=== PATIENT | female | born 1970 | race Hispanic/Latino ===

== ENCOUNTER → 2020-12-31 | Outpatient (CLI) | payer BC ==
[~2020-12-31] MED LIST: COLACE100 MG PO
== END ==
LOC: MAMMO 13:16
PROVIDERS: ATTEND Internal Medicine
DX: Z12.31 Encounter for screening mammogram for malignant neoplasm of breast (principal); R06.2 Wheezing
CPT/HCPCS: 71046; 77067

== ENCOUNTER 2021-01-01 18:49 | Emergency (ER) | payer BC ==
[~2021-01-01] VITALS: Ht 152.4 cm; Wt 59.0 kg
[2021-01-01] MEDS ORDERED: ASPIRIN 81 MG CHEW TAB PO ONE (19:30)
[2021-01-01 20:21] LABS: BASOPHILS # (AUTO) 0.1 (0.0-0.1); BASOPHILS % 0.7 % (0.0-1.0); EOSINOPHILS # (AUTO) 0.1 (0.0-0.4); EOSINOPHILS % 1.3 % (0.0-6.0); HEMATOCRIT 38.9 % (34.2-44.1); HEMOGLOBIN 12.2 g/dL (12.0-16.0); LYMPHOCYTES # (AUTO) 2.6 (1.0-3.2); LYMPHOCYTES % 34.3 % (18.0-39.1); MEAN CORPUSCULAR HEMOGLOBIN 27.1 pg (28-32); MEAN CORPUSCULAR HGB CONC 31.4 g/dL (31-35); MEAN CORPUSCULAR VOLUME 86.4 fL (81-99); MONOCYTES # (AUTO) 0.7 (0.2-0.8); MONOCYTES % 9.3 % (4.4-11.3); NEUTROPHILS # (AUTO) 4.1 (2.1-6.9); PLATELET COUNT 257 x10e3/uL (140-360); RED CELL DISTRIBUTION WIDTH 13.3 % (11.7-14.4)
[2021-01-01 20:24] LABS: CLARITY,URINE CLEAR (CLEAR); COLOR,URINE YELLOW (YELLOW)
[2021-01-01 20:25] LABS: KETONES,URINE NEGATIVE (NEGATIVE); LEUKOCYTE ESTERASE ,URINE NEGATIVE (NEGATIVE); NITRITE,URINE NEGATIVE (NEGATIVE); PROTEIN,URINE DIPSTICK NEGATIVE (NEGATIVE); URINE UROBILINOGEN 0.2 mg/dL (0.2 - 1)
[2021-01-01 20:35] LABS: BACTERIA,URINE RARE /HPF
[2021-01-01 20:39] LABS: ALANINE AMINOTRANSFERASE 14 IU/L (0-55); ALBUMIN 3.9 g/dL (3.5-5.0); ALBUMIN/GLOBULIN RATIO 1.1 (0.8-2.0); ALKALINE PHOSPHATASE 103 IU/L (40-150); ANION GAP 16.1 mmol/L (8-16); BLOOD UREA NITROGEN 22 mg/dL (7-26); BUN/CREATININE RATIO 33 (6-25); CALCIUM 9.3 mg/dL (8.4-10.2); CARBON DIOXIDE 24 mmol/L (22-29); CHLORIDE 106 mmol/L (98-107); CREATINE KINASE 87 IU/L (29-168); CREATININE, SERUM 0.66 mg/dL (0.57-1.11); EST GLOMERULAR FILTRATION RATE > 60 ML/MIN (60-); GLUCOSE 238 mg/dL (74-118); POTASSIUM 4.1 mmol/L (3.5-5.1); SODIUM 142 mmol/L (136-145)
[2021-01-01] MEDS ORDERED: SODIUM CHLORIDE 0.9% 50ML 50 ML ONE (20:54)
[2021-01-01] MEDS ORDERED: IOPAMIDOL 370 MG/ML 200 ML INFUS..BTL INJ ONE (20:54)
[2021-01-01] MEDS ORDERED: COLACE100 MG PO (21:39)
[2021-01-01 21:55] VITALS: BP 140/68
== END 2021-01-01 22:10 | disposition home or self-care (01) ==
LOC: ER 20:36
DX: R10.12 Left upper quadrant pain (principal); K59.00 Constipation, unspecified
CPT/HCPCS: 36415; 71045; 74177; 80053; 81001; 82550; 82553; 83690; 83880; 84484; 85025; 93005; 99284; Q9967

== ENCOUNTER 2021-04-28 08:56 | Emergency (ER) | payer BC ==
[~2021-04-28] VITALS: Ht 152.4 cm; Wt 59.0 kg
[2021-04-28 10:29] LABS: BASOPHILS # (AUTO) 0.1 (0.0-0.1); EOSINOPHILS # (AUTO) 0.1 (0.0-0.4); EOSINOPHILS % 1.6 % (0.0-6.0); HEMATOCRIT 43.3 % (34.2-44.1); LYMPHOCYTES # (AUTO) 2.7 (1.0-3.2); LYMPHOCYTES % 30.9 % (18.0-39.1); MEAN CORPUSCULAR HEMOGLOBIN 28.1 pg (28-32); MEAN CORPUSCULAR HGB CONC 32.3 g/dL (31-35); MEAN CORPUSCULAR VOLUME 86.8 fL (81-99); MONOCYTES # (AUTO) 0.6 (0.2-0.8); MONOCYTES % 6.9 % (4.4-11.3); NEUTROPHILS # (AUTO) 5.1 (2.1-6.9); NEUTROPHILS % 58.9 % (38.7-80.0); PLATELET COUNT 222 x10e3/uL (140-360); RED BLOOD COUNT 4.99 x10e6/uL (3.6-5.1); RED CELL DISTRIBUTION WIDTH 14.3 % (11.7-14.4)
[2021-04-28 10:36] LABS: CLARITY,URINE CLEAR (CLEAR); COLOR,URINE YELLOW (YELLOW); LEUKOCYTE ESTERASE ,URINE NEGATIVE (NEGATIVE); NITRITE,URINE NEGATIVE (NEGATIVE); PROTEIN,URINE DIPSTICK NEGATIVE (NEGATIVE)
[2021-04-28 10:37] LABS: KETONES,URINE NEGATIVE (NEGATIVE); URINE UROBILINOGEN 0.2 mg/dL (0.2 - 1)
[2021-04-28 10:40] LABS: ALANINE AMINOTRANSFERASE 24 IU/L (0-55); ALBUMIN 4.6 g/dL (3.5-5.0); ALBUMIN/GLOBULIN RATIO 1.2 (0.8-2.0); ALKALINE PHOSPHATASE 113 IU/L (40-150); ANION GAP 16.1 mmol/L (8-16); BLOOD UREA NITROGEN 8 mg/dL (7-26); BUN/CREATININE RATIO 11 (6-25); CALCIUM 9.6 mg/dL (8.4-10.2); CARBON DIOXIDE 24 mmol/L (22-29); CHLORIDE 105 mmol/L (98-107); CREATINE KINASE 77 IU/L (29-168); CREATININE, SERUM 0.71 mg/dL (0.57-1.11); EST GLOMERULAR FILTRATION RATE 87 ML/MIN (60-); GLUCOSE 203 mg/dL (74-118); POTASSIUM 4.1 mmol/L (3.5-5.1); SODIUM 141 mmol/L (136-145)
[2021-04-28 11:02] LABS: THYROID STIMULATING HORMONE 0.123 uIU/mL (0.350-4.940)
== END 2021-04-28 15:27 | disposition home or self-care (01) ==
LOC: ER 09:47
DX: R53.1 Weakness (principal); E11.65 Type 2 diabetes mellitus with hyperglycemia; R07.89 Other chest pain; R06.02 Shortness of breath; I69.354 Hemiplegia and hemiparesis following cerebral infarction affecting left non-dominant side; I69.351 Hemiplegia and hemiparesis following cerebral infarction affecting right dominant side
CPT/HCPCS: 36415; 70450; 71045; 80053; 81001; 82550; 82553; 83735; 84443; 84484; 85025; 85651; 93005; 99284; U0002

== ENCOUNTER 2022-03-01 09:11 | Emergency (ER) | payer BC, OTHER ==
[~2022-03-01] VITALS: Ht 152.4 cm; Wt 59.0 kg
[2022-03-01] MEDS ORDERED: SODIUM CHLORIDE FLUSH 10 ML SYR INJ PRN (09:30)
[2022-03-01 09:36] LABS: BASOPHILS # (AUTO) 0.1 (0.0-0.1); BASOPHILS % 0.8 % (0.0-1.0); EOSINOPHILS # (AUTO) 0.1 (0.0-0.4); EOSINOPHILS % 1.3 % (0.0-6.0); HEMATOCRIT 35.6 % (34.2-44.1); HEMOGLOBIN 11.6 g/dL (12.0-16.0); LYMPHOCYTES # (AUTO) 3.8 (1.0-3.2); LYMPHOCYTES % 38.7 % (18.0-39.1); MEAN CORPUSCULAR HEMOGLOBIN 29.1 pg (28-32); MEAN CORPUSCULAR HGB CONC 32.6 g/dL (31-35); MEAN CORPUSCULAR VOLUME 89.4 fL (81-99); MONOCYTES # (AUTO) 0.8 (0.2-0.8); MONOCYTES % 7.6 % (4.4-11.3); NEUTROPHILS % 50.5 % (38.7-80.0); PLATELET COUNT 257 x10e3/uL (140-360); RED BLOOD COUNT 3.98 x10e6/uL (3.6-5.1); RED CELL DISTRIBUTION WIDTH 13.2 % (11.7-14.4)
[2022-03-01] MEDS ORDERED: LACTATED RINGER'S 1,000 ML INJ STA (09:41)
[2022-03-01] MEDS ORDERED: ACETAMINOPHEN 325 MG TAB PO ONE (09:45)
[2022-03-01 09:50] LABS: INR 0.83; PROTHROMBIN TIME 12.2 seconds (11.9-14.5)
[2022-03-01 09:58] LABS: MAGNESIUM 1.4 MG/DL (1.3-2.1); PHOSPHORUS 3.5 MG/DL (2.3-4.7)
[2022-03-01 10:24] LABS: CLARITY,URINE CLEAR (CLEAR); COLOR,URINE YELLOW (YELLOW); KETONES,URINE NEGATIVE (NEGATIVE); LEUKOCYTE ESTERASE ,URINE NEGATIVE (NEGATIVE); NITRITE,URINE NEGATIVE (NEGATIVE); PROTEIN,URINE DIPSTICK NEGATIVE (NEGATIVE); URINE UROBILINOGEN 0.2 mg/dL (0.2 - 1)
[2022-03-01 10:39] LABS: BACTERIA,URINE FEW /HPF; EPITHELIAL CELLS,URINE FEW /LPF; RBC,URINE 0-5 /HPF (0-5); WBC,URINE (MAN) 0-5 /HPF (0-5)
[2022-03-01 12:35] LABS: ALBUMIN 3.7 g/dL (3.5-5.0); ALBUMIN/GLOBULIN RATIO 1.2 (0.8-2.0); CALCIUM 9.5 mg/dL (8.4-10.2); CREATININE, SERUM 0.8 mg/dL (0.57-1.11)
[2022-03-01] MEDS ORDERED: INSULIN REGULAR, HUMAN 100 UNIT/1 ML SQ ONE (12:45)
== END 2022-03-01 13:43 | disposition home or self-care (01) ==
LOC: ER 09:30
DX: R53.1 Weakness (principal); E11.65 Type 2 diabetes mellitus with hyperglycemia; E86.0 Dehydration; I10 Essential (primary) hypertension; E78.5 Hyperlipidemia, unspecified; Z86.73 Personal history of transient ischemic attack (TIA), and cerebral infarction without residual deficits
CPT/HCPCS: 36415; 70450; 70551; 80053; 81001; 82947; 83735; 84100; 85025; 85610; 93005; 94760; 99284; J7121; U0002

== ENCOUNTER 2022-04-03 21:09 | Emergency (ER) | payer OTHER ==
[~2022-04-03] VITALS: Ht 152.4 cm; Wt 56.7 kg
[2022-04-03 21:47] LABS: BASOPHILS # (AUTO) 0.1 (0.0-0.1); BASOPHILS % 0.8 % (0.0-1.0); EOSINOPHILS % 0.5 % (0.0-6.0); HEMATOCRIT 35.8 % (34.2-44.1); HEMOGLOBIN 11.6 g/dL (12.0-16.0); LYMPHOCYTES # (AUTO) 1.6 (1.0-3.2); LYMPHOCYTES % 25.4 % (18.0-39.1); MEAN CORPUSCULAR HEMOGLOBIN 29.4 pg (28-32); MEAN CORPUSCULAR HGB CONC 32.4 g/dL (31-35); MEAN CORPUSCULAR VOLUME 90.9 fL (81-99); MONOCYTES # (AUTO) 0.8 (0.2-0.8); MONOCYTES % 12.2 % (4.4-11.3); NEUTROPHILS # (AUTO) 3.9 (2.1-6.9); NEUTROPHILS % 60.3 % (38.7-80.0); PLATELET COUNT 212 x10e3/uL (140-360); RED BLOOD COUNT 3.94 x10e6/uL (3.6-5.1); RED CELL DISTRIBUTION WIDTH 13.3 % (11.7-14.4)
[2022-04-03 21:52] LABS: ALANINE AMINOTRANSFERASE 33 IU/L (0-55); ALBUMIN 3.7 g/dL (3.5-5.0); ALBUMIN/GLOBULIN RATIO 1.2 (0.8-2.0); ALKALINE PHOSPHATASE 62 IU/L (40-150); ANION GAP 15.5 mmol/L (8-16); BLOOD UREA NITROGEN 7 mg/dL (7-26); BUN/CREATININE RATIO 11 (6-25); CALCIUM 8.8 mg/dL (8.4-10.2); CARBON DIOXIDE 25 mmol/L (22-29); CHLORIDE 104 mmol/L (98-107); CREATINE KINASE 164 IU/L (29-168); CREATININE, SERUM 0.62 mg/dL (0.57-1.11); GLUCOSE 155 mg/dL (74-118); POTASSIUM 3.5 mmol/L (3.5-5.1); SODIUM 141 mmol/L (136-145)
[2022-04-03] MEDS ORDERED: BEBTELOVIMAB 175 MG INJ IV ONE (22:15)
[2022-04-04 00:27] VITALS: BP 110/56
== END 2022-04-04 00:28 | disposition home or self-care (01) ==
LOC: ER 21:13
DX: U07.1 COVID-19 (principal); R50.9 Fever, unspecified; R05.9 Cough, unspecified; E11.65 Type 2 diabetes mellitus with hyperglycemia; I10 Essential (primary) hypertension; E78.5 Hyperlipidemia, unspecified; R94.31 Abnormal electrocardiogram [ECG] [EKG]; Z86.73 Personal history of transient ischemic attack (TIA), and cerebral infarction without residual deficits
CPT/HCPCS: 36415; 71045; 80053; 82550; 82553; 83880; 84484; 85025; 93005; 99284; U0002

== ENCOUNTER 2023-02-19 18:03 | Inpatient (IN) | payer OTHER ==
[~2023-02-19] VITALS: Ht 152.4 cm; Wt 57.3 kg
[2023-02-19] MEDS ORDERED: CEFTRIAXONE 1 GM VIAL IM ONE (18:30)
[2023-02-19] MEDS ORDERED: VANCOMYCIN HCL 1.25 GM in SODIUM CHLORIDE 0.9% 250ML 250 ML IV ONE ×2 (18:30→19:15)
[2023-02-19 18:44] LABS: BASOPHILS # (AUTO) 0.1 (0.0-0.1); BASOPHILS % 0.9 % (0.0-1.0); EOSINOPHILS # (AUTO) 0.2 (0.0-0.4); EOSINOPHILS % 1.8 % (0.0-6.0); HEMATOCRIT 39.7 % (34.2-44.1); HEMOGLOBIN 12.9 g/dL (12.0-16.0); LYMPHOCYTES # (AUTO) 3.7 (1.0-3.2); LYMPHOCYTES % 40.3 % (18.0-39.1); MEAN CORPUSCULAR HEMOGLOBIN 28.8 pg (28-32); MEAN CORPUSCULAR HGB CONC 32.5 g/dL (31-35); MEAN CORPUSCULAR VOLUME 88.6 fL (81-99); MONOCYTES # (AUTO) 0.6 (0.2-0.8); MONOCYTES % 6.6 % (4.4-11.3); NEUTROPHILS # (AUTO) 4.6 (2.1-6.9); PLATELET COUNT 348 x10e3/uL (140-360); RED BLOOD COUNT 4.48 x10e6/uL (3.6-5.1); RED CELL DISTRIBUTION WIDTH 13.5 % (11.7-14.4)
[2023-02-19 18:57] LABS: ALBUMIN 4.6 g/dL (3.5-5.0); ALBUMIN/GLOBULIN RATIO 1.3 (0.8-2.0); ANION GAP 17.8 mmol/L (8-16); CREATININE, SERUM 0.98 mg/dL (0.57-1.11); POTASSIUM 3.8 mmol/L (3.5-5.1)
[2023-02-19] MEDS ORDERED: Vancomycin IV 1 GM in SODIUM CHLORIDE 0.9% 250ML 250 ML IV ONE (19:15)
[2023-02-19] MEDS ORDERED: TRAMADOL HCL 50 MG TAB PO ONE (19:30)
[2023-02-19] MEDS ORDERED: GABAPENTIN 300 MG CAP PO ONE (19:30)
[2023-02-19] MEDS ORDERED: Morphine 2mg Syringe 2 MG/ML SYR IV PRN (19:45)
[2023-02-19] MEDS ORDERED: SODIUM CHLORIDE FLUSH 10 ML SYR INJ PRN (19:45)
[2023-02-19] MEDS ORDERED: ONDANSETRON HCL INJ 2MG/ML 2ML 2 MG/ML VIAL IV PRN (19:45)
[2023-02-19 20:57] VITALS: BP 135/76
[2023-02-19 21:30] VITALS: BP 135/76
[2023-02-19 23:42] LABS: CREATINE KINASE 68 IU/L (29-168)
[2023-02-20] VITALS (7 sets, daily range): BP systolic 113–141; BP diastolic 59–78
[2023-02-20] MEDS ORDERED: PROTONIX20 MG PO (00:19)
[2023-02-20] MEDS ORDERED: MONTELUKAST SOD10 MG PO (00:19)
[2023-02-20] MEDS ORDERED: ASPIRIN81 MG PO (00:19)
[2023-02-20] MEDS ORDERED: CLOPIDOGREL75 MG PO (00:19)
[2023-02-20] MEDS ORDERED: METHIMAZOLE10 MG PO (00:19)
[2023-02-20] MEDS ORDERED: METFORMIN HCL500 MG PO (00:19)
[2023-02-20] MEDS ORDERED: FAMOTIDINE20 MG PO (00:19)
[2023-02-20] MEDS ORDERED: ATORVASTATIN CA20 MG PO (00:19)
[2023-02-20] MEDS ORDERED: GLIPIZIDE5 MG PO (00:19)
[2023-02-20] MEDS ORDERED: GUAIFENESIN/DEXTROMETHORPHAN LIQD 5 ML UDC PO PRN (01:45)
[2023-02-20] MEDS ORDERED: DEXTROSE 50% SYRINGE 50 ML IV PRN (01:45)
[2023-02-20] MEDS ORDERED: ONDANSETRON HCL INJ 2MG/ML 2ML 2 MG/ML VIAL IV PRN (01:45)
[2023-02-20] MEDS ORDERED: MAGNESIUM/ALUMINUM/SIMETHICONE 30 ML UDC PO PRN (01:45)
[2023-02-20] MEDS ORDERED: MELATONIN 3 MG TAB PO PRN (01:45)
[2023-02-20] MEDS ORDERED: ACETAMINOPHEN 325 MG TAB PO PRN (01:45)
[2023-02-20] MEDS ORDERED: DOCUSATE SODIUM 100 MG CAP PO PRN (01:45)
[2023-02-20] MEDS ORDERED: HYDRALAZINE HCL 20 MG/ML VIAL IV PRN (01:45)
[2023-02-20 06:24] LABS: BASOPHILS # (AUTO) 0.1 (0.0-0.1); BASOPHILS % 1.4 % (0.0-1.0); EOSINOPHILS # (AUTO) 0.2 (0.0-0.4); EOSINOPHILS % 3.6 % (0.0-6.0); HEMATOCRIT 34.2 % (34.2-44.1); HEMOGLOBIN 10.7 g/dL (12.0-16.0); LYMPHOCYTES # (AUTO) 3.1 (1.0-3.2); MEAN CORPUSCULAR HEMOGLOBIN 28.8 pg (28-32); MEAN CORPUSCULAR HGB CONC 31.3 g/dL (31-35); MEAN CORPUSCULAR VOLUME 91.9 fL (81-99); MONOCYTES # (AUTO) 0.6 (0.2-0.8); MONOCYTES % 8.7 % (4.4-11.3); NEUTROPHILS # (AUTO) 2.3 (2.1-6.9); NEUTROPHILS % 36.7 % (38.7-80.0); PLATELET COUNT 268 x10e3/uL (140-360); RED BLOOD COUNT 3.72 x10e6/uL (3.6-5.1); RED CELL DISTRIBUTION WIDTH 13.6 % (11.7-14.4)
[2023-02-20 06:43] LABS: ALBUMIN 3.7 g/dL (3.5-5.0); ALBUMIN/GLOBULIN RATIO 1.3 (0.8-2.0); ANION GAP 13.4 mmol/L (8-16); CALCIUM 8.8 mg/dL (8.4-10.2); CREATININE, SERUM 0.77 mg/dL (0.57-1.11); POTASSIUM 4.4 mmol/L (3.5-5.1)
[2023-02-20] MEDS: INSULIN REGULAR, HUMAN 100 UNIT/1 ML SQ SCH ×4 (07:30→21:19)
[2023-02-20] MEDS: MONTELUKAST SODIUM 10 MG TAB PO SCH (09:17)
[2023-02-20] MEDS: MULTIVITAMINS/MINERALS TAB PO SCH (09:17)
[2023-02-20] MEDS: FAMOTIDINE 20 MG TAB PO SCH (09:18)
[2023-02-20] MEDS: CLOPIDOGREL BISULFATE 75 MG TAB PO SCH (09:18)
[2023-02-20] MEDS: ASPIRIN 81 MG CHEW TAB PO SCH (09:18)
[2023-02-20] MEDS: PANTOPRAZOLE SOD 40 MG TABEC PO SCH (09:18)
[2023-02-20] MEDS: ACETAMINOPHEN/CODEINE 300MG - 30MG TAB PO PRN ×3 (09:24→21:47)
[2023-02-20] MEDS ORDERED: SODIUM CHLORIDE 0.9% 250ML 250 ML ONE (09:27)
[2023-02-20] MEDS ORDERED: IOPAMIDOL 370 MG/ML 100 ML INFUS..BTL INJ ONE (16:01)
[2023-02-20] MEDS: ATORVASTATIN 20 MG TAB PO SCH (21:08)
[2023-02-21] VITALS: BP 132/72
[2023-02-21 04:00] VITALS: BP 118/61
[2023-02-21 06:52] LABS: CHOL/HDL RATIO 4.6 (3.0-3.6)
[2023-02-21 08:00] VITALS: BP 118/61
[2023-02-21] MEDS: MONTELUKAST SODIUM 10 MG TAB PO SCH (08:17)
[2023-02-21] MEDS: MULTIVITAMINS/MINERALS TAB PO SCH (08:17)
[2023-02-21] MEDS: FAMOTIDINE 20 MG TAB PO SCH (08:18)
[2023-02-21] MEDS: PANTOPRAZOLE SOD 40 MG TABEC PO SCH (08:18)
[2023-02-21] MEDS: CLOPIDOGREL BISULFATE 75 MG TAB PO SCH (08:18)
[2023-02-21] MEDS: ASPIRIN 81 MG CHEW TAB PO SCH (08:18)
[2023-02-21] MEDS: ACETAMINOPHEN/CODEINE 300MG - 30MG TAB PO PRN ×2 (08:19→20:27)
[2023-02-21] MEDS: INSULIN REGULAR, HUMAN 100 UNIT/1 ML SQ SCH ×4 (08:21→20:20)
[2023-02-21 08:22] VITALS: BP 111/62
[2023-02-21 12:21] VITALS: BP 108/83
[2023-02-21] MEDS: Morphine 2mg Syringe 2 MG/ML SYR IV PRN ×2 (13:11→18:40)
[2023-02-21] MEDS ORDERED: ONDANSETRON HCL 4 MG ORAL DISINTEGRATING TAB PO PRN (14:15)
[2023-02-21 15:46] VITALS: BP 112/75
[2023-02-21] MEDS: ATORVASTATIN 20 MG TAB PO SCH (20:20)
[2023-02-22 05:00] VITALS: BP 112/75
[2023-02-22 05:01] VITALS: BP 112/75
[2023-02-22 08:03] VITALS: BP 118/61
[2023-02-22 08:27] VITALS: BP 116/78
[2023-02-22] MEDS: INSULIN REGULAR, HUMAN 100 UNIT/1 ML SQ SCH ×4 (08:56→20:53)
[2023-02-22] MEDS: Morphine 2mg Syringe 2 MG/ML SYR IV PRN ×2 (08:59→15:19)
[2023-02-22] MEDS: PANTOPRAZOLE SOD 40 MG TABEC PO SCH (09:00)
[2023-02-22] MEDS: MULTIVITAMINS/MINERALS TAB PO SCH (09:00)
[2023-02-22] MEDS: MONTELUKAST SODIUM 10 MG TAB PO SCH (09:00)
[2023-02-22] MEDS: ASPIRIN 81 MG CHEW TAB PO SCH (09:00)
[2023-02-22] MEDS: CLOPIDOGREL BISULFATE 75 MG TAB PO SCH (09:00)
[2023-02-22] MEDS: FAMOTIDINE 20 MG TAB PO SCH (09:00)
[2023-02-22 11:55] VITALS: BP 131/75
[2023-02-22] MEDS: ALBUTEROL SULF 0.083% NEB SOLN 3 ML NEB NEB SCH ×2 (15:00→23:00)
[2023-02-22 16:01] VITALS: BP 127/103
[2023-02-22] MEDS: ACETAMINOPHEN/CODEINE 300MG - 30MG TAB PO PRN (20:42)
[2023-02-22] MEDS: ATORVASTATIN 20 MG TAB PO SCH (20:42)
[2023-02-22] MEDS: INSULIN GLARGINE 100 UNITS/ML VIAL SQ SCH (20:55)
[2023-02-23] VITALS (20 sets, daily range): BP systolic 113–152; BP diastolic 58–84
[2023-02-23] MEDS: ALBUTEROL SULF 0.083% NEB SOLN 3 ML NEB NEB SCH (07:00)
[2023-02-23 07:23] LABS: BASOPHILS # (AUTO) 0.1 (0.0-0.1); BASOPHILS % 0.8 % (0.0-1.0); EOSINOPHILS # (AUTO) 0.2 (0.0-0.4); EOSINOPHILS % 3.1 % (0.0-6.0); HEMATOCRIT 34.9 % (34.2-44.1); HEMOGLOBIN 11.2 g/dL (12.0-16.0); LYMPHOCYTES # (AUTO) 2.5 (1.0-3.2); LYMPHOCYTES % 40.5 % (18.0-39.1); MEAN CORPUSCULAR HEMOGLOBIN 28.6 pg (28-32); MEAN CORPUSCULAR HGB CONC 32.1 g/dL (31-35); MEAN CORPUSCULAR VOLUME 89.3 fL (81-99); MONOCYTES # (AUTO) 0.7 (0.2-0.8); MONOCYTES % 10.8 % (4.4-11.3); NEUTROPHILS # (AUTO) 2.7 (2.1-6.9); NEUTROPHILS % 44.2 % (38.7-80.0); PLATELET COUNT 246 x10e3/uL (140-360); RED BLOOD COUNT 3.91 x10e6/uL (3.6-5.1); RED CELL DISTRIBUTION WIDTH 13.6 % (11.7-14.4)
[2023-02-23 07:41] LABS: ANION GAP 12.4 mmol/L (8-16); CALCIUM 9.2 mg/dL (8.4-10.2); CREATININE, SERUM 0.76 mg/dL (0.57-1.11); POTASSIUM 4.4 mmol/L (3.5-5.1)
[2023-02-23] MEDS: CLOPIDOGREL BISULFATE 75 MG TAB PO SCH (08:08)
[2023-02-23] MEDS: MONTELUKAST SODIUM 10 MG TAB PO SCH (08:09)
[2023-02-23] MEDS: FAMOTIDINE 20 MG TAB PO SCH (08:09)
[2023-02-23] MEDS: PANTOPRAZOLE SOD 40 MG TABEC PO SCH (08:09)
[2023-02-23] MEDS: MULTIVITAMINS/MINERALS TAB PO SCH (08:09)
[2023-02-23] MEDS: ASPIRIN 81 MG CHEW TAB PO SCH (09:00)
[2023-02-23] MEDS: INSULIN REGULAR, HUMAN 100 UNIT/1 ML SQ SCH ×4 (09:45→21:37)
[2023-02-23] MEDS ORDERED: NITROGLYCERIN/D5W 200 MCG/ML 250 ML ONE (10:06)
[2023-02-23] MEDS ORDERED: HEPARIN SOD/SOD CHLORIDE 2,000 ML ONE (10:06)
[2023-02-23] MEDS ORDERED: LIDOCAINE HCL 2% LOCAL 20 ML VIAL ONE (10:06)
[2023-02-23] MEDS ORDERED: IOPAMIDOL 370 MG/ML 100 ML INFUS..BTL INJ ONE (10:06)
[2023-02-23] MEDS ORDERED: SODIUM CHLORIDE 0.9% 1000ML 1,000 ML ONE ×2 (10:06→10:42)
[2023-02-23] MEDS ORDERED: FENTANYL CITRATE/PF 100MCG/2 ML INJ ONE (10:16)
[2023-02-23] MEDS ORDERED: MIDAZOLAM HCL 2 MG/2 ML VIAL ONE (10:16)
[2023-02-23] MEDS ORDERED: VERAPAMIL HCL 2.5 MG/ML 2 ML VIAL ONE (10:43)
[2023-02-23] MEDS ORDERED: CLOPIDOGREL BISULFATE 75 MG TAB ONE (11:40)
[2023-02-23] MEDS: INSULIN GLARGINE 100 UNITS/ML VIAL SQ SCH (21:38)
[2023-02-23] MEDS: ATORVASTATIN 20 MG TAB PO SCH (21:39)
[2023-02-23] MEDS: ACETAMINOPHEN/CODEINE 300MG - 30MG TAB PO PRN (21:54)
[2023-02-24 00:50] VITALS: BP 140/55
[2023-02-24 05:01] VITALS: BP 115/54
[2023-02-24] MEDS: INSULIN REGULAR, HUMAN 100 UNIT/1 ML SQ SCH (07:30)
[2023-02-24 08:27] VITALS: BP 123/72
[2023-02-24] MEDS: ASPIRIN 81 MG CHEW TAB PO SCH (08:38)
[2023-02-24] MEDS: FAMOTIDINE 20 MG TAB PO SCH (08:38)
[2023-02-24] MEDS: PANTOPRAZOLE SOD 40 MG TABEC PO SCH (08:38)
[2023-02-24] MEDS: MONTELUKAST SODIUM 10 MG TAB PO SCH (08:38)
[2023-02-24] MEDS: MULTIVITAMINS/MINERALS TAB PO SCH (08:38)
[2023-02-24] MEDS: CLOPIDOGREL BISULFATE 75 MG TAB PO SCH (08:39)
[2023-02-24 08:50] VITALS: BP 123/72
[2023-02-24 12:47] VITALS: BP 140/60
[2023-02-24] MEDS ORDERED: ASPIRIN81 MG PO (12:55)
[2023-02-24] MEDS ORDERED: LEVOFLOXACIN500 MG PO (12:55)
[2023-02-24] MEDS ORDERED: CLOPIDOGREL75 MG PO (12:55)
== END 2023-02-24 15:53 | disposition home or self-care (01) | DRG 271 ==
LOC: ER 18:07 → ERHOLD 19:47 → MED/SURG2 20:41 → OBSVTOIN 02-21 13:11
PROVIDERS: ADMIT Internal Medicine Critical Care Medicine; ATTEND Internal Medicine Critical Care Medicine
PROC: X27 New Technology, Cardiovascular System, Dilation (ICD-10-PCS; principal; 2023-02-23)
PROC: 04CM3ZZ Extirpation of Matter from Right Popliteal Artery, Percutaneous Approach (ICD-10-PCS; 2023-02-23)
PROC: B4101ZZ Fluoroscopy of Abdominal Aorta using Low Osmolar Contrast (ICD-10-PCS; 2023-02-23)
PROC: B41G1ZZ Fluoroscopy of Left Lower Extremity Arteries using Low Osmolar Contrast (ICD-10-PCS; 2023-02-23)
PROC: B41F1ZZ Fluoroscopy of Right Lower Extremity Arteries using Low Osmolar Contrast (ICD-10-PCS; 2023-02-23)
DX: E11.51 Type 2 diabetes mellitus with diabetic peripheral angiopathy without gangrene (principal); L03.115 Cellulitis of right lower limb; L03.116 Cellulitis of left lower limb; I70.221 Atherosclerosis of native arteries of extremities with rest pain, right leg; E11.621 Type 2 diabetes mellitus with foot ulcer; L97.519 Non-pressure chronic ulcer of other part of right foot with unspecified severity; Z86.73 Personal history of transient ischemic attack (TIA), and cerebral infarction without residual deficits; I25.10 Atherosclerotic heart disease of native coronary artery without angina pectoris; Z95.5 Presence of coronary angioplasty implant and graft; Z95.820 Peripheral vascular angioplasty status with implants and grafts; E11.69 Type 2 diabetes mellitus with other specified complication; E78.5 Hyperlipidemia, unspecified
CPT/HCPCS: 36247; 36415; 37225; 37228; 71045; 75625; 75716; 76937; 80048; 80053; 80061; 82550; 82553; 82948; 83036; 83735; 84484; 85025; 86140; 93005; 93306; 93925; 99152; 99153; 99252; 99284; C1724; C1725; C1766; C1769; C1887; C1894; C2623; G0378; J0692; J0696; J1815; J2001; J2250; J2270; J2405; J7030; J7050; Q9967

== ENCOUNTER 2023-02-25 18:34 | Emergency (ER) | payer OTHER ==
[~2023-02-25] VITALS: Ht 152.4 cm; Wt 57.2 kg
[~2023-02-25 18:34] MED LIST changes: +ASPIRIN81 MG PO; +ATORVASTATIN CA20 MG PO; +CLOPIDOGREL75 MG PO; +FAMOTIDINE20 MG PO; +GLIPIZIDE5 MG PO; +LEVOFLOXACIN500 MG PO; +METFORMIN HCL500 MG PO; +METHIMAZOLE10 MG PO; +MONTELUKAST SOD10 MG PO; +PROTONIX20 MG PO
[2023-02-25 19:43] LABS: BASOPHILS # (AUTO) 0.1 (0.0-0.1); BASOPHILS % 0.9 % (0.0-1.0); EOSINOPHILS # (AUTO) 0.1 (0.0-0.4); EOSINOPHILS % 0.9 % (0.0-6.0); HEMATOCRIT 36.1 % (34.2-44.1); HEMOGLOBIN 11.6 g/dL (12.0-16.0); LYMPHOCYTES # (AUTO) 2.6 (1.0-3.2); LYMPHOCYTES % 26.4 % (18.0-39.1); MEAN CORPUSCULAR HGB CONC 32.1 g/dL (31-35); MEAN CORPUSCULAR VOLUME 90.3 fL (81-99); MONOCYTES # (AUTO) 0.7 (0.2-0.8); MONOCYTES % 7.4 % (4.4-11.3); NEUTROPHILS # (AUTO) 6.2 (2.1-6.9); NEUTROPHILS % 64.1 % (38.7-80.0); PLATELET COUNT 261 x10e3/uL (140-360); RED CELL DISTRIBUTION WIDTH 13.4 % (11.7-14.4)
[2023-02-25] MEDS ORDERED: SODIUM CHLORIDE 0.9% 1000ML 1,000 ML IV ONE (19:45)
[2023-02-25 19:59] LABS: ALBUMIN 4.2 g/dL (3.5-5.0); ALBUMIN/GLOBULIN RATIO 1.1 (0.8-2.0); ANION GAP 17.2 mmol/L (8-16); CALCIUM 10.2 mg/dL (8.4-10.2); CREATININE, SERUM 0.76 mg/dL (0.57-1.11); POTASSIUM 4.2 mmol/L (3.5-5.1)
[2023-02-25] MEDS ORDERED: IOPAMIDOL 370 MG/ML 100 ML INFUS..BTL INJ ONE (20:25)
[2023-02-25] MEDS ORDERED: ACETAMINOPHEN/CODEINE 300MG - 30MG TAB PO ONE (21:15)
[2023-02-26] MEDS ORDERED: DOXYCYCLINE HY100 MG PO (00:04)
[2023-02-26 00:20] VITALS: BP 122/75
== END 2023-02-26 00:22 | disposition home or self-care (01) ==
LOC: ER 19:10
DX: E11.51 Type 2 diabetes mellitus with diabetic peripheral angiopathy without gangrene (principal); I10 Essential (primary) hypertension; I25.10 Atherosclerotic heart disease of native coronary artery without angina pectoris; E78.5 Hyperlipidemia, unspecified; Z79.84 Long term (current) use of oral hypoglycemic drugs
CPT/HCPCS: 36415; 73706; 80053; 85025; 99284; J7030; Q9967

== ENCOUNTER → 2023-03-01 | Outpatient (CLI) | payer OTHER ==
[~2023-03-01] MED LIST changes: +DOXYCYCLINE HY100 MG PO; +LIDOCAINE VISC 2% SOLN 15 ML UDC ONE; +LIDOCAINE/PRILOCAINE 2.5-2.5% KIT ONE; +MUPIROCIN 2% OINT 22 GM TUBE ONE
== END ==
LOC: WCC 07:31
PROVIDERS: ATTEND Family Medicine Adult Medicine
DX: E11.621 Type 2 diabetes mellitus with foot ulcer (principal); L97.518 Non-pressure chronic ulcer of other part of right foot with other specified severity; R23.8 Other skin changes
CPT/HCPCS: 36415; 82948; 84134

== ENCOUNTER → 2023-03-04 | Outpatient (CLI) | payer OTHER ==
[~2023-03-04] MED LIST changes: -LIDOCAINE VISC 2% SOLN 15 ML UDC ONE; -LIDOCAINE/PRILOCAINE 2.5-2.5% KIT ONE; -MUPIROCIN 2% OINT 22 GM TUBE ONE
== END ==
LOC: LAB
PROVIDERS: ATTEND Family Medicine Adult Medicine
DX: Z01.818 Encounter for other preprocedural examination (principal); E11.621 Type 2 diabetes mellitus with foot ulcer; L97.518 Non-pressure chronic ulcer of other part of right foot with other specified severity

== ENCOUNTER → 2023-03-08 | Outpatient (CLI) | payer OTHER | LOC: LAB 03-04 15:19 | PROVIDERS: ATTEND Family Medicine Adult Medicine | DX: E11.621 Type 2 diabetes mellitus with foot ulcer (principal); L97.518 Non-pressure chronic ulcer of other part of right foot with other specified severity; R23.8 Other skin changes ==

== ENCOUNTER → 2023-03-14 | Outpatient (CLI) | payer OTHER | LOC: WCC 08:14 | PROVIDERS: ATTEND Family Medicine Adult Medicine | DX: E11.621 Type 2 diabetes mellitus with foot ulcer (principal); L97.518 Non-pressure chronic ulcer of other part of right foot with other specified severity | CPT/HCPCS: 99212; G0277 ==

== ENCOUNTER → 2023-03-15 | Outpatient (CLI) | payer OTHER | LOC: WCC 10:16 | PROVIDERS: ATTEND Family Medicine Adult Medicine | DX: E11.621 Type 2 diabetes mellitus with foot ulcer (principal); L97.518 Non-pressure chronic ulcer of other part of right foot with other specified severity; R23.8 Other skin changes | CPT/HCPCS: 99213; G0277 ==

== ENCOUNTER → 2023-03-16 | Outpatient (CLI) | payer OTHER | LOC: WCC 12:06 | PROVIDERS: ATTEND Family Medicine Adult Medicine | DX: E11.621 Type 2 diabetes mellitus with foot ulcer (principal); L97.518 Non-pressure chronic ulcer of other part of right foot with other specified severity ==

== ENCOUNTER → 2023-03-17 | Outpatient (CLI) | payer OTHER | LOC: WCC 12:36 | PROVIDERS: ATTEND Family Medicine Adult Medicine | DX: E11.621 Type 2 diabetes mellitus with foot ulcer (principal); L97.518 Non-pressure chronic ulcer of other part of right foot with other specified severity ==

== ENCOUNTER → 2023-03-18 | Outpatient (CLI) | payer OTHER | LOC: WCC 13:48 | PROVIDERS: ATTEND Family Medicine Adult Medicine | DX: E11.621 Type 2 diabetes mellitus with foot ulcer (principal); L97.518 Non-pressure chronic ulcer of other part of right foot with other specified severity | CPT/HCPCS: 99212; G0277 ==

== ENCOUNTER → 2023-03-21 | Outpatient (CLI) | payer OTHER | LOC: WCC 10:09 | PROVIDERS: ATTEND Family Medicine Adult Medicine | DX: E11.621 Type 2 diabetes mellitus with foot ulcer (principal); L97.518 Non-pressure chronic ulcer of other part of right foot with other specified severity ==

== ENCOUNTER → 2023-03-22 | Outpatient (CLI) | payer OTHER | LOC: WCC 14:40 | PROVIDERS: ATTEND Family Medicine Adult Medicine | DX: E11.621 Type 2 diabetes mellitus with foot ulcer (principal); L97.518 Non-pressure chronic ulcer of other part of right foot with other specified severity; R23.8 Other skin changes | CPT/HCPCS: 36415; 82948; 99212; G0277 ==

== ENCOUNTER → 2023-03-23 | Outpatient (CLI) | payer OTHER | LOC: WCC 13:08 | PROVIDERS: ATTEND Family Medicine Adult Medicine | DX: E11.621 Type 2 diabetes mellitus with foot ulcer (principal); L97.518 Non-pressure chronic ulcer of other part of right foot with other specified severity ==

== ENCOUNTER → 2023-03-24 | Outpatient (CLI) | payer OTHER | LOC: WCC 12:58 | PROVIDERS: ATTEND Family Medicine Adult Medicine | DX: E11.621 Type 2 diabetes mellitus with foot ulcer (principal); L97.518 Non-pressure chronic ulcer of other part of right foot with other specified severity ==

== ENCOUNTER → 2023-03-25 | Outpatient (CLI) | payer OTHER ==
[~2023-03-25] MED LIST changes: +CIPRO500 MG PO; +DILAUDID2 MG PO; +HYDROCODON-ACE1 EA11 PO; +LEVEMIR100 UNIT/1 SC; +MUPIROCIN22 GM TOP; +NEURONTIN100 MG PO
== END ==
LOC: WCC 08:00
PROVIDERS: ATTEND Family Medicine Adult Medicine
DX: E11.621 Type 2 diabetes mellitus with foot ulcer (principal); L97.518 Non-pressure chronic ulcer of other part of right foot with other specified severity
CPT/HCPCS: 99212; G0277

== ENCOUNTER → 2023-03-29 | Outpatient (CLI) | payer OTHER ==
[~2023-03-29] MED LIST changes: -CIPRO500 MG PO; -DILAUDID2 MG PO; -HYDROCODON-ACE1 EA11 PO; -LEVEMIR100 UNIT/1 SC; -MUPIROCIN22 GM TOP; -NEURONTIN100 MG PO
== END ==
LOC: WCC 12:39
PROVIDERS: ATTEND Family Medicine Adult Medicine
DX: E11.621 Type 2 diabetes mellitus with foot ulcer (principal); L97.518 Non-pressure chronic ulcer of other part of right foot with other specified severity
CPT/HCPCS: 99212; G0277

== ENCOUNTER → 2023-03-30 | Outpatient (CLI) | payer OTHER | LOC: WCC 13:01 | PROVIDERS: ATTEND Family Medicine Adult Medicine | DX: E11.621 Type 2 diabetes mellitus with foot ulcer (principal); L97.518 Non-pressure chronic ulcer of other part of right foot with other specified severity ==

== ENCOUNTER → 2023-03-31 | Outpatient (CLI) | payer OTHER | LOC: WCC 08:28 | PROVIDERS: ATTEND Family Medicine Adult Medicine | DX: E11.621 Type 2 diabetes mellitus with foot ulcer (principal); L97.518 Non-pressure chronic ulcer of other part of right foot with other specified severity | CPT/HCPCS: 36415; 82948; G0277 ==

== ENCOUNTER → 2023-04-04 | Outpatient (CLI) | payer OTHER | LOC: WCC 11:32 | PROVIDERS: ATTEND Family Medicine Adult Medicine | DX: E11.621 Type 2 diabetes mellitus with foot ulcer (principal); L97.518 Non-pressure chronic ulcer of other part of right foot with other specified severity ==

== ENCOUNTER → 2023-04-05 | Outpatient (CLI) | payer OTHER | LOC: WCC 13:47 | PROVIDERS: ATTEND Family Medicine Adult Medicine | DX: E11.621 Type 2 diabetes mellitus with foot ulcer (principal); L97.518 Non-pressure chronic ulcer of other part of right foot with other specified severity | CPT/HCPCS: 99213; G0277 ==

== ENCOUNTER → 2023-04-06 | Outpatient (CLI) | payer OTHER | LOC: WCC 08:00 | PROVIDERS: ATTEND Family Medicine Adult Medicine | DX: E11.621 Type 2 diabetes mellitus with foot ulcer (principal); L97.518 Non-pressure chronic ulcer of other part of right foot with other specified severity | CPT/HCPCS: 99212; G0277 ==

== ENCOUNTER → 2023-04-07 | Outpatient (CLI) | payer OTHER | LOC: WCC 14:27 | PROVIDERS: ATTEND Family Medicine Adult Medicine | DX: E11.621 Type 2 diabetes mellitus with foot ulcer (principal); L97.518 Non-pressure chronic ulcer of other part of right foot with other specified severity; R23.8 Other skin changes | CPT/HCPCS: 99212; 99213; G0277 ==

== ENCOUNTER → 2023-04-08 | Outpatient (CLI) | payer OTHER ==
[~2023-04-08] MED LIST changes: +LEVEMIR100 UNIT/1 SC; +MUPIROCIN22 GM TOP; +NEURONTIN100 MG PO
== END ==
LOC: WCC 09:05
PROVIDERS: ATTEND Family Medicine Adult Medicine
DX: E11.621 Type 2 diabetes mellitus with foot ulcer (principal); L97.518 Non-pressure chronic ulcer of other part of right foot with other specified severity

== ENCOUNTER → 2023-04-11 | Outpatient (CLI) | payer OTHER | LOC: WCC 08:07 | PROVIDERS: ATTEND Family Medicine Adult Medicine | DX: E11.621 Type 2 diabetes mellitus with foot ulcer (principal); L97.518 Non-pressure chronic ulcer of other part of right foot with other specified severity ==

== ENCOUNTER → 2023-04-12 | Outpatient (CLI) | payer OTHER | LOC: WCC 10:29 | PROVIDERS: ATTEND Family Medicine Adult Medicine | DX: E11.621 Type 2 diabetes mellitus with foot ulcer (principal); L97.518 Non-pressure chronic ulcer of other part of right foot with other specified severity; R23.8 Other skin changes ==

== ENCOUNTER → 2023-04-13 | Outpatient (CLI) | payer OTHER | LOC: WCC 09:27 | PROVIDERS: ATTEND Family Medicine Adult Medicine | DX: E11.621 Type 2 diabetes mellitus with foot ulcer (principal); L97.518 Non-pressure chronic ulcer of other part of right foot with other specified severity ==

== ENCOUNTER 2023-04-14 13:39 | Inpatient (IN) | payer OTHER ==
[~2023-04-14] VITALS: Ht 152.4 cm; Wt 57.2 kg
[~2023-04-14 13:39] MED LIST changes: -CIPRO500 MG PO; -DILAUDID2 MG PO; -HYDROCODON-ACE1 EA11 PO; -LEVEMIR100 UNIT/1 SC; -MUPIROCIN22 GM TOP; -NEURONTIN100 MG PO
[2023-04-14] MEDS ORDERED: SODIUM CHLORIDE 0.9% 1000ML 1,000 ML IV STA (13:53)
[2023-04-14] MEDS ORDERED: Vancomycin IV 1 GM in SODIUM CHLORIDE 0.9% 250ML 250 ML IV ONE (14:30)
[2023-04-14 14:45] LABS: BASOPHILS # (AUTO) 0.1 (0.0-0.1); BASOPHILS % 0.9 % (0.0-1.0); EOSINOPHILS # (AUTO) 0.1 (0.0-0.4); EOSINOPHILS % 2.1 % (0.0-6.0); HEMATOCRIT 33.8 % (34.2-44.1); HEMOGLOBIN 11.2 g/dL (12.0-16.0); LYMPHOCYTES # (AUTO) 2.3 (1.0-3.2); LYMPHOCYTES % 36.8 % (18.0-39.1); MEAN CORPUSCULAR HEMOGLOBIN 28.5 pg (28-32); MEAN CORPUSCULAR HGB CONC 33.1 g/dL (31-35); MONOCYTES # (AUTO) 0.4 (0.2-0.8); MONOCYTES % 6.5 % (4.4-11.3); NEUTROPHILS # (AUTO) 3.4 (2.1-6.9); NEUTROPHILS % 53.4 % (38.7-80.0); PLATELET COUNT 318 x10e3/uL (140-360); RED BLOOD COUNT 3.93 x10e6/uL (3.6-5.1); RED CELL DISTRIBUTION WIDTH 13.2 % (11.7-14.4)
[2023-04-14] MEDS ORDERED: SODIUM CHLORIDE 0.9% 1000ML 1,000 ML IV SCH (14:45)
[2023-04-14 14:54] LABS: INR 0.87; PROTHROMBIN TIME 12.3 seconds (11.9-14.5)
[2023-04-14 14:55] LABS: PARTIAL THROMBOPLASTIN TIME 27.1 seconds (23.8-35.5)
[2023-04-14] MEDS: ONDANSETRON HCL INJ 2MG/ML 2ML 2 MG/ML VIAL IV PRN ×2 (14:57→19:15)
[2023-04-14] MEDS: Morphine 4mg INJECTION 4 MG/ML INJ IV PRN ×2 (14:58→19:15)
[2023-04-14 15:01] LABS: ALANINE AMINOTRANSFERASE 18 IU/L (0-55); ALBUMIN 4.6 g/dL (3.5-5.0); ALBUMIN/GLOBULIN RATIO 1.3 (0.8-2.0); ALKALINE PHOSPHATASE 53 IU/L (40-150); ANION GAP 15.3 mmol/L (8-16); BLOOD UREA NITROGEN 28 mg/dL (7-26); BUN/CREATININE RATIO 36 (6-25); CALCIUM 9.6 mg/dL (8.4-10.2); CARBON DIOXIDE 16 mmol/L (22-29); CHLORIDE 115 mmol/L (98-107); CREATININE, SERUM 0.78 mg/dL (0.57-1.11); GLUCOSE 193 mg/dL (74-118); POTASSIUM 4.3 mmol/L (3.5-5.1); SODIUM 142 mmol/L (136-145)
[2023-04-14 20:10] VITALS: BP 155/80; PULSE 78; RESP 17; RESP 18; TEMP 97.7; O2SAT 100
[2023-04-14 20:30] VITALS: BP 155/80; PULSE 78; RESP 18; TEMP 97.7; O2SAT 100
[2023-04-14] MEDS ORDERED: LEVEMIR100 UNIT/1 SC (20:48)
[2023-04-14] MEDS ORDERED: NEURONTIN100 MG PO (20:50)
[2023-04-14] MEDS ORDERED: MUPIROCIN22 GM TOP (20:50)
[2023-04-14 21:00] VITALS: BP 155/80; PULSE 78; RESP 18; TEMP 97.7; O2SAT 100
[2023-04-14] MEDS ORDERED: ACETAMINOPHEN 325 MG TAB PO PRN (21:30)
[2023-04-14] MEDS ORDERED: ATORVASTATIN 20 MG TAB PO SCH (21:30)
[2023-04-14] MEDS ORDERED: DEXTROSE 50% SYRINGE 50 ML IV PRN (21:30)
[2023-04-14] MEDS: INSULIN LISPRO 100 UNIT/1 ML 3ML VIAL SQ SCH (21:43)
[2023-04-14] MEDS: HYDROMORPHONE 1MG/1ML INJ IV PRN (21:45)
[2023-04-14 23:31] LABS: CREATINE KINASE 97 IU/L (29-168)
[2023-04-15] VITALS (8 sets, daily range): BP systolic 99–146; BP diastolic 69–86; PULSE 66–82; RESP 16–18; TEMP 97.5–98.2; O2SAT 99–100
[2023-04-15] MEDS: HYDROMORPHONE 1MG/1ML INJ IV PRN ×4 (02:29→21:33)
[2023-04-15] MEDS ORDERED: Vancomycin IV 750 MG in SODIUM CHLORIDE 0.9% 100 ML IV SCH ×2 (03:00→07:00)
[2023-04-15 05:41] LABS: BASOPHILS # (AUTO) 0.1 (0.0-0.1); BASOPHILS % 0.8 % (0.0-1.0); EOSINOPHILS # (AUTO) 0.2 (0.0-0.4); EOSINOPHILS % 2.4 % (0.0-6.0); HEMATOCRIT 30.6 % (34.2-44.1); HEMOGLOBIN 9.8 g/dL (12.0-16.0); LYMPHOCYTES # (AUTO) 2.4 (1.0-3.2); LYMPHOCYTES % 37.1 % (18.0-39.1); MEAN CORPUSCULAR HEMOGLOBIN 28.8 pg (28-32); MONOCYTES # (AUTO) 0.5 (0.2-0.8); MONOCYTES % 7.4 % (4.4-11.3); NEUTROPHILS # (AUTO) 3.3 (2.1-6.9); NEUTROPHILS % 51.8 % (38.7-80.0); PLATELET COUNT 257 x10e3/uL (140-360); RED CELL DISTRIBUTION WIDTH 13.3 % (11.7-14.4)
[2023-04-15 06:13] LABS: ALBUMIN 3.6 g/dL (3.5-5.0); ALBUMIN/GLOBULIN RATIO 1.4 (0.8-2.0); ANION GAP 10.3 mmol/L (8-16); CALCIUM 7.9 mg/dL (8.4-10.2); CREATININE, SERUM 0.68 mg/dL (0.57-1.11); POTASSIUM 4.3 mmol/L (3.5-5.1)
[2023-04-15 07:03] LABS: MAGNESIUM 1.5 MG/DL (1.3-2.1)
[2023-04-15 07:29] LABS: THYROID STIMULATING HORMONE 1.43 uIU/mL (0.350-4.940)
[2023-04-15] MEDS: INSULIN LISPRO 100 UNIT/1 ML 3ML VIAL SQ SCH ×4 (07:30→20:31)
[2023-04-15 07:42] LABS: CREATINE KINASE 89 IU/L (29-168)
[2023-04-15] MEDS: MUPIROCIN 2% OINT 22 GM TUBE TOP SCH (08:34)
[2023-04-15] MEDS: INSULIN GLARGINE 100 UNITS/ML VIAL SC SCH ×2 (08:35→16:25)
[2023-04-15] MEDS ORDERED: METHIMAZOLE 5 MG TAB PO SCH (09:00)
[2023-04-15] MEDS ORDERED: METFORMIN HCL 500 MG TAB PO SCH (09:00)
[2023-04-15] MEDS: SENNOSIDES 8.6 MG TAB PO SCH ×2 (09:37→11:16)
[2023-04-15] MEDS: DOCUSATE SODIUM 100 MG CAP PO SCH ×2 (09:37→11:15)
[2023-04-15] MEDS: HYDROCODONE/APAP 5MG-325MG TAB PO PRN ×2 (11:15→16:13)
[2023-04-15] MEDS: GLIPIZIDE 5 MG TAB PO SCH (11:15)
[2023-04-15] MEDS: GABAPENTIN 100 MG CAP PO SCH (11:16)
[2023-04-15] MEDS: ASPIRIN 81 MG CHEW TAB PO SCH (11:16)
[2023-04-15] MEDS: MONTELUKAST SODIUM 10 MG TAB PO SCH (11:16)
[2023-04-15] MEDS: CLOPIDOGREL BISULFATE 75 MG TAB PO SCH (11:16)
[2023-04-15 15:14] LABS: CREATINE KINASE 91 IU/L (29-168)
[2023-04-15] MEDS: METFORMIN HCL 500 MG TAB PO SCH (16:13)
[2023-04-15] MEDS: ENOXAPARIN SOD INJ 40 MG/0.4 ML SYR SC SCH (16:14)
[2023-04-15] MEDS: ONDANSETRON HCL INJ 2MG/ML 2ML 2 MG/ML VIAL IV PRN (20:21)
[2023-04-15] MEDS: ATORVASTATIN 40 MG TAB PO SCH (21:31)
[2023-04-16] VITALS (8 sets, daily range): BP systolic 119–135; BP diastolic 53–75; PULSE 60–77; RESP 16–21; TEMP 97.1–98.6; O2SAT 99–100
[2023-04-16] MEDS: HYDROMORPHONE 1MG/1ML INJ IV PRN ×5 (01:45→21:40)
[2023-04-16] MEDS: METHIMAZOLE 5 MG TAB PO SCH (05:16)
[2023-04-16 08:13] LABS: BASOPHILS # (AUTO) 0.1 (0.0-0.1); BASOPHILS % 1.2 % (0.0-1.0); EOSINOPHILS # (AUTO) 0.2 (0.0-0.4); EOSINOPHILS % 3.1 % (0.0-6.0); HEMATOCRIT 29.1 % (34.2-44.1); HEMOGLOBIN 9.4 g/dL (12.0-16.0); LYMPHOCYTES # (AUTO) 2.3 (1.0-3.2); LYMPHOCYTES % 43.5 % (18.0-39.1); MEAN CORPUSCULAR HEMOGLOBIN 28.4 pg (28-32); MEAN CORPUSCULAR HGB CONC 32.3 g/dL (31-35); MEAN CORPUSCULAR VOLUME 87.9 fL (81-99); MONOCYTES # (AUTO) 0.4 (0.2-0.8); MONOCYTES % 8.5 % (4.4-11.3); NEUTROPHILS # (AUTO) 2.3 (2.1-6.9); NEUTROPHILS % 43.5 % (38.7-80.0); PLATELET COUNT 257 x10e3/uL (140-360); RED BLOOD COUNT 3.31 x10e6/uL (3.6-5.1); RED CELL DISTRIBUTION WIDTH 13.5 % (11.7-14.4)
[2023-04-16 09:10] LABS: ALBUMIN 3.4 g/dL (3.5-5.0); ALBUMIN/GLOBULIN RATIO 1.3 (0.8-2.0); ANION GAP 10.1 mmol/L (8-16); CALCIUM 8.4 mg/dL (8.4-10.2); CREATININE, SERUM 0.63 mg/dL (0.57-1.11); MAGNESIUM 1.6 MG/DL (1.3-2.1); POTASSIUM 4.1 mmol/L (3.5-5.1)
[2023-04-16] MEDS: DOCUSATE SODIUM 100 MG CAP PO SCH (09:24)
[2023-04-16] MEDS: SENNOSIDES 8.6 MG TAB PO SCH (09:24)
[2023-04-16] MEDS: MONTELUKAST SODIUM 10 MG TAB PO SCH (09:24)
[2023-04-16] MEDS: GLIPIZIDE 5 MG TAB PO SCH (09:24)
[2023-04-16] MEDS: ASPIRIN 81 MG CHEW TAB PO SCH (09:24)
[2023-04-16] MEDS: CLOPIDOGREL BISULFATE 75 MG TAB PO SCH (09:24)
[2023-04-16] MEDS: GABAPENTIN 100 MG CAP PO SCH (09:24)
[2023-04-16] MEDS: INSULIN LISPRO 100 UNIT/1 ML 3ML VIAL SQ SCH ×4 (09:25→20:26)
[2023-04-16] MEDS: METFORMIN HCL 500 MG TAB PO SCH ×2 (09:25→16:59)
[2023-04-16] MEDS: MUPIROCIN 2% OINT 22 GM TUBE TOP SCH (09:27)
[2023-04-16] MEDS: INSULIN GLARGINE 100 UNITS/ML VIAL SC SCH ×2 (09:27→17:00)
[2023-04-16] MEDS: ONDANSETRON HCL INJ 2MG/ML 2ML 2 MG/ML VIAL IV PRN ×4 (09:30→21:40)
[2023-04-16] MEDS: MAGNESIUM SULFATE 2GM/50ML 50 ML IV SCH ×2 (13:31→15:10)
[2023-04-16] MEDS: ENOXAPARIN SOD INJ 40 MG/0.4 ML SYR SC SCH (17:00)
[2023-04-16] MEDS: ATORVASTATIN 40 MG TAB PO SCH (20:13)
[2023-04-16] MEDS: HYDROCODONE/APAP 5MG-325MG TAB PO PRN (20:13)
[2023-04-17] VITALS: BP 120/60; PULSE 69; RESP 20; TEMP 97.8; O2SAT 100
[2023-04-17] MEDS: ONDANSETRON HCL INJ 2MG/ML 2ML 2 MG/ML VIAL IV PRN ×2 (02:05→06:19)
[2023-04-17] MEDS: HYDROMORPHONE 1MG/1ML INJ IV PRN ×2 (02:06→06:19)
[2023-04-17 04:00] VITALS: BP 122/58; PULSE 71; RESP 20; TEMP 97.8; O2SAT 100
[2023-04-17] MEDS: METHIMAZOLE 5 MG TAB PO SCH (05:04)
[2023-04-17 07:26] VITALS: BP 136/62; PULSE 68; RESP 18; TEMP 98.1; O2SAT 100
[2023-04-17] MEDS: INSULIN LISPRO 100 UNIT/1 ML 3ML VIAL SQ SCH ×3 (07:30→17:46)
[2023-04-17] MEDS ORDERED: GLIPIZIDE 5 MG TAB PO SCH (07:30)
[2023-04-17 07:45] LABS: BASOPHILS # (AUTO) 0.1 (0.0-0.1); BASOPHILS % 1.3 % (0.0-1.0); EOSINOPHILS # (AUTO) 0.2 (0.0-0.4); EOSINOPHILS % 3.5 % (0.0-6.0); HEMOGLOBIN 9.4 g/dL (12.0-16.0); LYMPHOCYTES # (AUTO) 2.5 (1.0-3.2); LYMPHOCYTES % 41.2 % (18.0-39.1); MEAN CORPUSCULAR HEMOGLOBIN 28.4 pg (28-32); MEAN CORPUSCULAR HGB CONC 31.3 g/dL (31-35); MEAN CORPUSCULAR VOLUME 90.6 fL (81-99); MONOCYTES # (AUTO) 0.5 (0.2-0.8); MONOCYTES % 7.9 % (4.4-11.3); NEUTROPHILS # (AUTO) 2.8 (2.1-6.9); NEUTROPHILS % 45.8 % (38.7-80.0); PLATELET COUNT 268 x10e3/uL (140-360); RED BLOOD COUNT 3.31 x10e6/uL (3.6-5.1); RED CELL DISTRIBUTION WIDTH 13.4 % (11.7-14.4)
[2023-04-17 08:03] VITALS: BP 136/62; PULSE 68; RESP 18; TEMP 98.1; O2SAT 100
[2023-04-17 08:12] LABS: ALBUMIN 3.4 g/dL (3.5-5.0); ALBUMIN/GLOBULIN RATIO 1.3 (0.8-2.0); ANION GAP 10.8 mmol/L (8-16); CALCIUM 8.5 mg/dL (8.4-10.2); CREATININE, SERUM 0.66 mg/dL (0.57-1.11); MAGNESIUM 1.7 MG/DL (1.3-2.1); POTASSIUM 3.8 mmol/L (3.5-5.1)
[2023-04-17] MEDS: INSULIN GLARGINE 100 UNITS/ML VIAL SC SCH (09:00)
[2023-04-17] MEDS: MONTELUKAST SODIUM 10 MG TAB PO SCH (10:29)
[2023-04-17] MEDS: GABAPENTIN 100 MG CAP PO SCH (10:30)
[2023-04-17] MEDS: ASPIRIN 81 MG CHEW TAB PO SCH (10:30)
[2023-04-17] MEDS: METFORMIN HCL 500 MG TAB PO SCH (10:30)
[2023-04-17] MEDS: CLOPIDOGREL BISULFATE 75 MG TAB PO SCH (10:31)
[2023-04-17] MEDS: HYDROMORPHONE HCL 2 MG TAB PO PRN ×2 (10:40→14:38)
[2023-04-17] MEDS: MUPIROCIN 2% OINT 22 GM TUBE TOP SCH (10:41)
[2023-04-17] MEDS: DOCUSATE SODIUM 100 MG CAP PO SCH (10:42)
[2023-04-17] MEDS: SENNOSIDES 8.6 MG TAB PO SCH (10:42)
[2023-04-17 11:30] VITALS: BP 133/64; PULSE 66; RESP 18; TEMP 97.4; O2SAT 100
[2023-04-17] MEDS ORDERED: HYDROCODON-ACE1 EA11 PO (14:52)
[2023-04-17] MEDS ORDERED: DILAUDID2 MG PO (14:52)
[2023-04-17] MEDS ORDERED: DOXYCYCLINE HY100 MG PO (14:52)
[2023-04-17] MEDS ORDERED: CIPRO500 MG PO (14:52)
[2023-04-17 15:11] VITALS: BP 140/67; PULSE 77; RESP 19; TEMP 97.6; O2SAT 100
== END 2023-04-17 18:11 | disposition home or self-care (01) | DRG 637 ==
LOC: ER 13:48 → ERHOLD 14:42 → MED/SURG3 20:25
PROVIDERS: ADMIT Internal Medicine; ATTEND Internal Medicine
DX: E11.621 Type 2 diabetes mellitus with foot ulcer (principal); L89.893 Pressure ulcer of other site, stage 3; I96 Gangrene, not elsewhere classified; L03.115 Cellulitis of right lower limb; Z20.822 Contact with and (suspected) exposure to COVID-19; I10 Essential (primary) hypertension; Z86.73 Personal history of transient ischemic attack (TIA), and cerebral infarction without residual deficits; I25.10 Atherosclerotic heart disease of native coronary artery without angina pectoris; Z59.6 Low income; Z79.82 Long term (current) use of aspirin; Z79.84 Long term (current) use of oral hypoglycemic drugs; E11.51 Type 2 diabetes mellitus with diabetic peripheral angiopathy without gangrene; Z79.4 Long term (current) use of insulin; E78.2 Mixed hyperlipidemia; E11.42 Type 2 diabetes mellitus with diabetic polyneuropathy; Z90.49 Acquired absence of other specified parts of digestive tract
CPT/HCPCS: 0223U; 36415; 71045; 80053; 80202; 82550; 82948; 83036; 83735; 83880; 84443; 84484; 85025; 85610; 85730; 86140; 87040; 93005; 93925; 96372; 99252; 99284; J1170; J1650; J1815; J2270; J2405; J2543; J3475; J7030; J7050

== ENCOUNTER → 2023-04-14 | Outpatient (CLI) | payer OTHER ==
[~2023-04-14] MED LIST changes: +CIPRO500 MG PO; +DILAUDID2 MG PO; +HYDROCODON-ACE1 EA11 PO
== END ==
LOC: WCC 09:55
PROVIDERS: ATTEND Family Medicine Adult Medicine
DX: E11.621 Type 2 diabetes mellitus with foot ulcer (principal); L97.518 Non-pressure chronic ulcer of other part of right foot with other specified severity
CPT/HCPCS: 99213; G0277

== ENCOUNTER → 2023-04-20 | Outpatient (CLI) | payer OTHER ==
[~2023-04-20] MED LIST changes: +CIPRO500 MG PO; +DILAUDID2 MG PO; +HYDROCODON-ACE1 EA11 PO; +LEVEMIR100 UNIT/1 SC; +MUPIROCIN22 GM TOP; +NEURONTIN100 MG PO
== END ==
LOC: WCC 10:15
PROVIDERS: ATTEND Internal Medicine Infectious Disease
DX: E11.621 Type 2 diabetes mellitus with foot ulcer (principal); L97.518 Non-pressure chronic ulcer of other part of right foot with other specified severity
CPT/HCPCS: 87071; 87075; 87186; 87205; G0277

== ENCOUNTER → 2023-04-21 | Outpatient (CLI) | payer OTHER | LOC: WCC 08:00 | PROVIDERS: ATTEND Family Medicine Adult Medicine | DX: E11.621 Type 2 diabetes mellitus with foot ulcer (principal); L97.518 Non-pressure chronic ulcer of other part of right foot with other specified severity ==

== ENCOUNTER → 2023-04-22 | Outpatient (CLI) | payer OTHER | LOC: WCC 08:43 | PROVIDERS: ATTEND Family Medicine Adult Medicine | DX: E11.621 Type 2 diabetes mellitus with foot ulcer (principal); L97.518 Non-pressure chronic ulcer of other part of right foot with other specified severity | CPT/HCPCS: 36415; 82948; G0277 ==

== ENCOUNTER → 2023-04-25 | Outpatient (CLI) | payer OTHER | LOC: WCC 08:59 | PROVIDERS: ATTEND Family Medicine Adult Medicine | DX: E11.621 Type 2 diabetes mellitus with foot ulcer (principal); L97.518 Non-pressure chronic ulcer of other part of right foot with other specified severity | CPT/HCPCS: 11042; 99213; G0277 ×2 ==

== ENCOUNTER → 2023-04-26 | Outpatient (CLI) | payer OTHER | LOC: WCC 10:21 | PROVIDERS: ATTEND Family Medicine Adult Medicine | DX: E11.621 Type 2 diabetes mellitus with foot ulcer (principal); L97.518 Non-pressure chronic ulcer of other part of right foot with other specified severity | CPT/HCPCS: 11042; 99212; G0277 ==

== ENCOUNTER → 2023-04-27 | Outpatient (CLI) | payer OTHER | LOC: WCC 08:00 | PROVIDERS: ATTEND Family Medicine Adult Medicine | DX: E11.621 Type 2 diabetes mellitus with foot ulcer (principal); L97.518 Non-pressure chronic ulcer of other part of right foot with other specified severity | CPT/HCPCS: 36415; 82948; G0277 ==